=== PATIENT | female | born 1980 | race Caucasian/White ===

== ENCOUNTER 2017-04-08 02:31 | Inpatient (IN) | payer MEDICAID, OTHER, SELFPAY ==
[2017-04-08 03:14] VITALS: BMI 35.9
[2017-04-08] MEDS ORDERED: Ondansetron HCl/PF 4 MG/2 ML Vial IVP PRN ×3 (03:36→20:32)
[2017-04-08] MEDS ORDERED: HYDROcodone/Acetaminophen 5/325 mg Tablet PO PRN ×3 (03:36→20:32)
[2017-04-08] MEDS ORDERED: Ibuprofen 800 MG TAB PO PRN (03:36)
[2017-04-08] MEDS ORDERED: Lidocaine 1% (PF) 30 ML VIAL SC PRN (03:36)
[2017-04-08] MEDS ORDERED: Penicillin G Potassium 5 MILL.UNITS in Sodium Chloride 0.9% 100 ML IVPB SCH (03:45)
[2017-04-08] MEDS ORDERED: LR 500 ML/Oxytocin 10 units 500 ML IV SCH (03:45)
[2017-04-08] MEDS ORDERED: Penicillin G 2.5 MILL.units 2.5 MILL.UNITS in Premix Bag 1 BAG IVPB SCH (05:00)
[2017-04-08 05:07] LABS: Red Blood Cell (RBC) Count 4.38 mill/uL (4.20-5.40); White Blood Cell (WBC) Count 9.4 thou/uL (4.8-10.8)
[2017-04-08] MEDS: Lactated Ringer's 1,000 ML IV SCH ×2 (05:36→12:38)
--- NOTE | 2017-04-08 07:19 | PDOC.LDPN ---
Labor & Delivery Progress Note - Subjective Subjective: comfortable, loss of fluid (Pt came in with SROM) - Objective General: NAD, resting Uterine fundus: non tender Dilation: 3 Effacement: 75% Station: -1 FHT: category 1, variability present (moderate) Plan: other (on pitocin @ 6; wants an epidural)
[2017-04-08] MEDS ORDERED: Fentanyl 4 mcg/Marc 0.1% Cadd 100 ML ONE (12:48)
[2017-04-08] MEDS ORDERED: Fentanyl 100 MCG/2 ML VIAL ONE (13:25)
--- NOTE | 2017-04-08 14:30 | PDOC.LDPN ---
Labor & Delivery Progress Note - Subjective Subjective: comfortable (numb after epidural) - Objective Vital signs reviewed and normal: yes General: NAD, resting Uterine fundus: non tender SVE: 10/100/+1 FHT: category 1 [place] contractions every: 3-4 min w/ couplets Other exam findings: infant in OP position Resuscitative measures: maternal position change - Assessment (1) Active labor at term Code(s): [id number] - Current Visit: No Status: Acute Plan: continue plan of care -: position change and laboring down and will allow for rotation. Dr. Mao present for plan of care.
[2017-04-08] MEDS: LR / Pitocin 40 units/1000 ml 1,000 ML IV PRN ×2 (16:00→18:52)
--- NOTE | 2017-04-08 16:33 | OP ---
DELIVERY NOTE DATE OF SERVICE: 04/08/2017 DESCRIPTION OF PROCEDURE: The patient delivered by uncomplicated term spontaneous vaginal delivery a female infant at 3:56 p.m. Apgars were 9 and 9. Baby was in OP presentation. Placenta delivered spontaneously followed by Pitocin infusion. There were no lacerations. Dr. Mao is the [facility] physician. Dr. Suggs is the primary delivering physician. There were no complications. Estima dalila blood loss 200 mL. Mother and baby were stable in the immediate .
[2017-04-08] MEDS ORDERED: Misoprostol 200 MCG TAB ONE (16:39)
[2017-04-08] MEDS ORDERED: diphenhydrAMINE 50 MG/ML VIAL IVP PRN (16:40)
[2017-04-08] MEDS ORDERED: Promethazine HCl 25 MG/ML VIAL IM PRN (16:40)
[2017-04-08] MEDS ORDERED: Acetaminophen 325 MG TAB PO PRN (16:40)
[2017-04-08] MEDS ORDERED: Eucerin (Mineral Oil/Petrolatum,White) 30 gm Jar TOP PRN (16:40)
[2017-04-08] MEDS ORDERED: Naloxone HCl 0.4 mg/ml Vial IV PRN ×2 (16:40)
[2017-04-08] MEDS ORDERED: Lactated Ringer's 500 ML IV PRN (16:40)
[2017-04-08] MEDS ORDERED: ePHEDrine/0.9% NaCl/PF SYRINGE 50 mg/10 ml SLOW IVP PRN (16:40)
[2017-04-08] MEDS ORDERED: Fentanyl 4 mcg/Marc 0.1% Cadd 100 ML in Premix Bag 1 BAG EPIDURAL SCH (16:40)
[2017-04-08] MEDS ORDERED: Misoprostol 200 MCG TAB PR SCH (17:00)
[2017-04-08] MEDS ORDERED: LR / Pitocin 40 units/1000 ml 1,000 ML IV SCH (20:32)
[2017-04-08] MEDS ORDERED: Bisacodyl 10 MG SUPP PR PRN (20:32)
[2017-04-08] MEDS ORDERED: Lanolin Ointment 7 GM TUBE TOP PRN (20:32)
[2017-04-08] MEDS ORDERED: Milk Of Magnesia 30 ML UDCUP PO PRN (20:32)
[2017-04-08] MEDS ORDERED: Adacel (T-DAP) 0.5 ML VIAL IM ONE (20:32)
[2017-04-08] MEDS: Ferrous Sulfate 325 MG TAB PO SCH (20:51)
[2017-04-08] MEDS: Docusate Calcium (SURFAK) 240 MG CAP PO SCH (21:52)
[2017-04-08] MEDS: HYDROcodone/Acetaminophen 5/325 mg Tablet PO PRN (21:52)
[2017-04-08] MEDS: Ibuprofen 800 MG TAB PO SCH (21:56)
[2017-04-08] MEDS: Dextrose 5%-Lactated Ringers 1,000 ML IV SCH ×2 (22:12→22:13)
[2017-04-09] MEDS: HYDROcodone/Acetaminophen 5/325 mg Tablet PO PRN (03:20)
[2017-04-09 05:38] LABS: Hematocrit 31.4 % (36.0-47.0); Mean Platelet Volume 8.6 fL (7.4-10.4); Red Blood Cell (RBC) Count 3.82 mill/uL (4.20-5.40); White Blood Cell (WBC) Count 12.7 thou/uL (4.8-10.8)
[2017-04-09] MEDS: Ibuprofen 800 MG TAB PO SCH ×3 (06:04→21:57)
[2017-04-09] MEDS: Prenatal Vitamin 1 TAB PO SCH (09:49)
[2017-04-09] MEDS: Ferrous Sulfate 325 MG TAB PO SCH ×2 (09:49→19:58)
[2017-04-09] MEDS: Docusate Calcium (SURFAK) 240 MG CAP PO SCH ×2 (09:49→21:57)
--- NOTE | 2017-04-09 13:22 | DIS ---
DIAGNOSES: 1. Multigravida. 2. Vaginal delivery. In brief, this is a patient admitted from the Clinic who presented on 04/08/[address] Pablo beltran as faculty. The patient arrived with a complaint of rupture of membranes at term. For full details, please turn to the history and physical from Dr. Mao. The patient was a 5, par a 3 at term. The patient progressed to spontaneous vaginal delivery without incident. Baby's weigh t was 3187 grams, 38 weeks gestation, 3-vessel cord. Apgars reported were 9 and 9. Again for compl ete vaginal delivery notes, please turn to the progress note per residents. Per the operative repor t/delivery record by Dr. Mao, there were no reported lacerations. Again, there were no reported lacerations. In brief, I evaluated the patient on 04/09/2017 at 0615 on 3 [facility]. She was clinically in no ac [place] distress and was doing well. Vital signs ranged from 98.3-98.1, temperature ranged from 98.3 to 98.1, pulse was in the 60s-70s, respirations were unlabored at 16, blood pressure ranged from 103/5 1-121/70. On laboratory assessment predelivery hematocrit value was 36, value was 31.4, and hepatit is B surface antigen and syphilis serologies were checked on admission and were both negative. PHYSICAL EXAMINATION: She is in no acute distress. Uterus was firm and nontender and there was no evidence of heavy vaginal bleeding. HOSPITAL COURSE: As the patient was to be 24 hours on 04/09/2017 at roughly 1500, the pl an was made to discharge her home at 1600 projected time. The patient agreed with the plan for disc harge as she felt well. DISCHARGE MEDICATIONS: Include Motrin p.r.n. She was told to follow up at the Clinic per routine for care.
[2017-04-10] MEDS: Ibuprofen 800 MG TAB PO SCH (05:25)
--- NOTE | 2017-04-10 06:37 | PDOC.PP ---
Post Progress Note Post Day #: 2 PO intake tolerated: yes Flatus: yes Ambulation: yes Vital Signs (12 hours) Temp Pulse Resp BP 04/09/17 20:35 98.4 F 81 18 120/59 L Weight Weight 190 lb - Physical Examination General: NAD Cardiovascular: no m/r/g, RRR Respiratory: clear to auscultation bilaterally Abdominal: + bowel sounds, lochia Extremities: negative homans (B) Neurological: no gross focal deficits Psychiatric: A&Ox3, normal affect (dc home) Result Diagrams: 04/09/17 05:10 Additional Labs: Post Labs Blood Type O POSITIVE 04/08/17 04:57 Hep Bs Antigen Non-Reactive S/CO (NonReactive) 04/08/17 04:57
[2017-04-10 07:49] VITALS: BP 119/70; TEMP 98.3
[2017-04-10] MEDS: HYDROcodone/Acetaminophen 5/325 mg Tablet PO PRN (08:22)
[2017-04-10] MEDS: Prenatal Vitamin 1 TAB PO SCH (08:23)
[2017-04-10] MEDS: Docusate Calcium (SURFAK) 240 MG CAP PO SCH (08:23)
[2017-04-10] MEDS: Ferrous Sulfate 325 MG TAB PO SCH (08:24)
== END 2017-04-10 12:40 | disposition home or self-care (01) | DRG 775 ==
LOC: L&D/OP 02:31 → L&D 04:10 → 3SW 20:33
PROVIDERS: ADMIT Obstetrics & Gynecology; ATTEND Obstetrics & Gynecology
PROC: 10E0XZZ Delivery of Products of Conception, External Approach (ICD-10-PCS; principal; 2017-04-08)
DX: O80 Encounter for full-term uncomplicated delivery (principal); Z23 Encounter for immunization; Z37.0 Single live birth; Z3A.38 38 weeks gestation of pregnancy
CPT/HCPCS: 36415; 85027; 86780; 87340; 90715; J2001; J3010; J7120